=== PATIENT | male | born 1940 | race Caucasian/White ===

== ENCOUNTER 2024-10-12 16:27 | Outpatient (AMB) | payer MEDICARE, MEDICAID, SELFPAY ==
--- NOTE | 2024-10-12 16:28 | MHC.OFFVIS ---
Intake Visit Reasons: 6 Month F/U Allergies No Known Allergies Allergy (Verified 10/05/24 10:30) Medication List - Last Reconciled 10/12/24 by Leonardo Cherry MD amantadine HCl 100 mg PO BID atorvastatin 40 mg PO DAILY carbidopa-levodopa 50-200 mg ER 1 tab PO TID lisinopril 5 mg PO DAILY ropinirole 1 mg PO TID tamsulosin 0.4 mg PO DAILY HPI Comments Details: The patient is an 84-year-old male presenting with Parkinson's Disease for medication management and assessment of mobility concerns. A recent trip to [facility] resulted in improvement in mobility, attributed to better weather, nutrition, and family support. The patient uses a cane but is advised to transition to a walker for improved safety. He experiences a persistent hand tremor characteristic of Parkinson's Disease. The absence of hallucinations, irritability, and mood changes is reported. Current medication regimen includes amantadine, carbidopa/levodopa, and ropinirole, with the carbidopa/levodopa recently adjusted to three doses per day. [facility] Medical History (Updated 10/12/24 @ 16:30 by Leonardo Cherry MD) Parkinson disease Review of Systems Const Details: - Neurological: Reports hand tremor. Denies hallucinations or changes in mood. - Mood: Denies irritability or agitation. - Sleep: Reports adequate sleep. - General: Reports improvement in mood while in [facility]. Physical Exam Neuro Other: Mental Status: Alert and awake, did not speak Serbian, answered questions asked by family members. Denies any problem. Cranial Nerves: CN II: Visual murillo full to confrontation, visual acuity intact. CN III, IV, : Pupils equal, round, reactive to light and accommodation. Extraocular movements are normal. CN V: Facial sensation is normal. CN VII: Facial movements symmetrical. CN VIII: Hearing intact to bedside conversation is normal. CN IX, X: Palate elevates symmetrically. CN XI: Shoulder shrug and head turn symmetrical. CN XII: Tongue midline without atrophy or fasciculations. Extrapyramidal: Decreased facial expression blinking. Moderate generalized bradykinesia. While walking, stooped posture using a cane with almost continuous tremor of right hand. Walking is slow on short steps. Speech: Normal; no dysarthria or tremor. Assessment & Plan Assessment & Plan (1) Parkinson disease: Comment: CT brain WO at [facility] in Mar 2024: Mod diff atropy, left basal ganglia lacune Code(s): G20.A1 - Parkinson's disease without dyskinesia, without mention of fluctuations Category: Medical Qualifiers: Dyskinesia presence: without dyskinesia Fluctuating manifestations: without fluctuating manifestations Qualified Code(s): G20.A1 - Parkinson's disease without dyskinesia, without mention of fluctuations Plan Impression: Moderate Parkinson disease, EDSS 3 Rec: a: Amantadine 100mg bid b: Carbidopa/levodopa 50/200 tid c: Ropinirole 1mg tid d: Use a walker to avoid falling e: Regular exercise regimen Medications: New amantadine HCl 100 mg PO BID 180 caps 1RF carbidopa-levodopa 50-200 mg ER 1 tab PO TID 360 tabs 1RF ropinirole 1 mg PO TID 270 tabs 1RF Coding Level of Care Code Est Pt Level 4 (88113) Diagnoses Parkinson's disease without dyskinesia or fluctuating manifestations G20.A1 Dyskinesia presence: without dyskinesia Fluctuating manifestations: without fluctuating manifestations
== END 2024-10-12 16:38 | disposition home or self-care (01) ==
LOC: HO.HSM 16:28
PROVIDERS: PCP Internal Medicine; Referring Provider Internal Medicine; Visit Provider Psychiatry & Neurology Neurology
DX: G20.A1 Parkinson's disease without dyskinesia, without mention of fluctuations (principal)
CPT/HCPCS: 99214

== ENCOUNTER → 2024-10-12 16:27 | Outpatient (BNVA) | payer MEDICARE, MEDICAID, SELFPAY | PROVIDERS: PCP Internal Medicine; Referring Provider Internal Medicine; Visit Provider Psychiatry & Neurology Neurology | DX: G20.A1 Parkinson's disease without dyskinesia, without mention of fluctuations (principal) | CPT/HCPCS: 99212 ==